=== PATIENT | male | born 1970 | race Caucasian/White ===

== ENCOUNTER 2017-08-27 09:10 | Day surgery (SDC) | payer OTHER ==
[2017-08-27] MEDS ORDERED: Propofol 10 mg/ml Inj (20 ML) ONE (11:31)
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
[2017-08-27] MEDS ORDERED: Lactated Ringer's 500 ML IV SCH (11:45)
[2017-08-27 12:45] VITALS: O2SAT 98
[2017-08-27 13:08] VITALS: BP 114/67; PULSE 74; RESP 13; TEMP 97.7
== END 2017-08-27 13:04 | disposition home or self-care (01) ==
LOC: C.ENDO 09:10
PROVIDERS: ATTEND Specialist
DX: K29.70 Gastritis, unspecified, without bleeding (principal); K29.80 Duodenitis without bleeding; B96.81 Helicobacter pylori [H. pylori] as the cause of diseases classified elsewhere
CPT/HCPCS: 43239; 88305; 88342; J2704; J7120

== ENCOUNTER 2017-08-29 07:54 | Day surgery (SDC) | payer OTHER ==
[2017-08-28 13:55] VITALS: BMI 32.4
--- NOTE | 2017-08-29 09:41 | CP.SDSHP ---
Same Day Surgery H & P - History Proposed Procedure: COLONSCOPY Pre-Op Diagnosis: SEE NOTES - Previous Medical/Surgical History Misc: Other Pain: 4.Moderate Pain - Allergies Allergies: Allergies No Known Allergies Allergy (Verified 08/28/17 13:54) - Physical Exam General Appearance: N Vital Signs: Vital Signs 08/29/17 08:33 Temperature 987.6 F H Pulse Rate 74 Respiratory 19 Rate Blood Pressure 133/70 O2 Sat by Pulse 97 Oximetry Mental Status: Alert & Oriented x3 Neuro: WNL Heart: WNL Lungs: WNL GI: WNL - {Optional Preform as Required} Breast: WNL Abdomen: Other Rectal: Other Integument: WNL : WNL Ortho: WNL ENT: WNL - Impression Pt. Evaluated Today:Candidate for Anesthesia & Procedure: Yes - Date & Time Time: 09:41 Short Stay Discharge - Short Stay Discharge Admitting Diagnosis/Reason for Visit: HEMORRHAGE OF ANUS AND RECTUM Disposition: HOME/ ROUTINE
[2017-08-29] MEDS ORDERED: Lactated Ringer's 1,000 ML IV ONE ×2 (09:42)
[2017-08-29] MEDS ORDERED: Belladonna-Phenobarbital PO STA (09:42)
[2017-08-29] MEDS ORDERED: Propofol 10 mg/ml Inj (20 ML) ONE (09:45)
[2017-08-29 10:37] VITALS: O2SAT 98
[2017-08-29 11:14] VITALS: BP 104/52; PULSE 59; RESP 16; TEMP 97.6
== END 2017-08-29 11:05 | disposition home or self-care (01) ==
LOC: C.ENDO 07:54
PROVIDERS: ATTEND Specialist
DX: K63.5 Polyp of colon (principal); K52.9 Noninfective gastroenteritis and colitis, unspecified; K64.8 Other hemorrhoids
CPT/HCPCS: 45380; 88305; J2704; J7120

== ENCOUNTER 2017-09-15 14:19 | Emergency (ER) | payer OTHER ==
[2017-09-15 14:29] VITALS: BMI 31.4
[2017-09-15 14:31] VITALS: RESP 18; O2SAT 97
[2017-09-15] MEDS ORDERED: Morphine 4 MG/ML VIAL ONE (14:56)
[2017-09-15 15:10] LABS: BASO # 0.1 K/uL (0.0-0.2); BASO % 0.6 % (0.0-2.0); EOS # 0.1 K/uL (0.0-0.7); EOS % 1.5 % (0.0-4.0); HEMOGLOBIN 15.4 g/dL (12.0-18.0); LYMPH # 1.7 K/uL (1.0-4.3); LYMPH % 17.7 % (20.0-40.0); MEAN CORPUSCULAR HEMOGLOBIN 31.4 pg (27.0-31.0); MEAN CORPUSCULAR HGB CONC 34.1 g/dL (33.0-37.0); MEAN PLATELET VOLUME 9.3 fL (7.2-11.7); MONO # 0.5 K/uL (0.0-0.8); MONO % 5.4 % (0.0-10.0); NEUT % 74.8 % (50.0-75.0); RBC 4.9 Mil/uL (4.40-5.90); RED CELL DISTRIBUTION WIDTH 13.4 % (11.5-14.5); WHITE BLOOD COUNT 9.3 K/uL (4.8-10.8)
[2017-09-15 15:26] LABS: URINE BILIRUBIN NEGATIVE (NEGATIVE); URINE BLOOD 2+ (NEGATIVE); URINE CALCIUM OXALATE CRYSTALS OCC /hpf (<OCC); URINE CLARITY Clear (Clear); URINE COLOR Yellow (YELLOW); URINE GLUCOSE (UA) NORMAL (Normal); URINE LEUKOCYTE ESTERASE NEG Leu/uL (Negative); URINE PROTEIN 1+ mg/dL (NEGATIVE); URINE UROBILINOGEN NORMAL mg/dL (0.2-1.0)
--- NOTE | 2017-09-15 15:32 | C.PDOC ---
History Of Present Illness 47yo male, with history of renal stones, presents to ER with complaints of right sided abdominal pain, intermittently present since yesterday. Patient reports associated nausea but denies any vomiting, testicular pain, dysuria, penile discharge, hematuria or fevers. He has no other medical complaints. Time Seen by Provider: 09/15/17 14:47 Chief Complaint (Nursing): Abdominal Pain History Per: Patient History/Exam Limitations: no limitations Onset/Duration Of Symptoms: Days (1) Current Symptoms Are (Timing): Still Present Location Of Pain/Discomfort: RUQ, RLQ Quality Of Discomfort: "Pain" Associated Symptoms: Nausea. denies: Fever, Vomiting Past Medical History Reviewed: Historical Data, Nursing Documentation, Vital Signs Vital Signs: Last Vital Signs Temp 97.9 F 09/15/17 16:30 Pulse 83 09/15/17 16:30 Resp 18 09/15/17 16:30 BP 124/72 09/15/17 16:30 Pulse Ox 97 09/15/17 16:30 - Medical History PMH: Gastritis, Kidney Stones Denies: Colonic Polyps, Fractures, Obstructive Bowel, Chronic Kidney Disease , Seizures, Sleep Apnea, TIA Surgical History: Appendectomy, Cholecystectomy, Endoscopy Family History: States: Unknown Family Hx - Social History Hx Tobacco Use: No Hx Alcohol Use: Yes Hx Substance Use: No - Immunization History Hx Tetanus Toxoid Vaccination: No Hx Influenza Vaccination: No Hx Pneumococcal Vaccination: No Review Of Systems Except As Marked, All Systems Reviewed And Found Negative. Constitutional: Negative for: Fever Gastrointestinal: Positive for: Nausea, Abdominal Pain. Negative for: Vomiting Genitourinary: Negative for: Hematuria Physical Exam - Physical Exam Appears: Non-toxic, Other (uncomfortable) Skin: Normal Color, Warm, Dry Head: Atraumatic, Normacephalic Eye(s): bilateral: Normal Inspection, EOMI Nose: Normal Oral Mucosa: Moist Neck: Normal ROM, Supple Chest: Symmetrical Cardiovascular: Rhythm Regular Respiratory: Normal Breath Sounds, No Accessory Muscle Use, Other (speaking full sentences) Gastrointestinal/Abdominal: Soft, Tenderness (right sided abdominal tenderness) Back: CVA Tenderness (right), No Vertebral Tenderness Neurological/Psych: Oriented x3, Normal Speech ED Course And Treatment - Laboratory Results Result Diagrams: 09/15/17 15:05 09/15/17 15:05 O2 Sat by Pulse Oximetry: 97 (RA) Pulse Ox Interpretation: Normal - CT Scan/US CT Abdomen/Pelvis Other Rad Studies (CT/US): Read By Radiologist, Radiology Report Reviewed CT/US Interpretation: PROCEDURE: CT Abdomen and Pelvis without Oral or IV contrast. HISTORY: abd pain. COMPARISON: CT abdomen and pelvis without contrast performed 06/13/15. TECHNIQUE: Contiguous axial images of the abdomen and pelvis. No oral or IV contrast administered. Coronal and Sagittal reformats generated and reviewed. Radiation dose: Total exam DLP = 906.99 mGy-cm. This CT exam was performed using one or more of the following dose reduction techniques: Automated exposure control, adjustment of the mA and/or kV according to patient size, and/or use of iterative reconstruction technique. FINDINGS: There is limited evaluation of the solid organs without the administration of IV contrast. LOWER THORAX: No visible consolidation, pleural effusion, or pneumothorax. LIVER: Unremarkable unenhanced appearance. GALLBLADDER AND BILE DUCTS: Suspect gallbladder sludge. PANCREAS: Unremarkable unenhanced appearance. SPLEEN: 9 mm probable splenule. Otherwise unremarkable unenhanced appearance. . ADRENALS: Unremarkable unenhanced appearance. KIDNEYS AND URETERS: 3 mm distal right ureteral calculus with proximal mild hydroureteronephrosis. Additional bilateral nonobstructing renal calculi measuring up to 6 mm on the left and 5 mm on the right. Faintly visualized 10 mm left upper pole renal hypodensity measures approximately 9 HU, possibly cyst. BLADDER: Decompressed urinary bladder appears otherwise unremarkable. REPRODUCTIVE: The prostate gland measures approximately 4.7 x 5.3 cm. APPENDIX: The appendix is not identified. No secondary signs of acute appendicitis identified. BOWEL: The stomach is nondistended. Lack of oral contrast limits evaluation for bowel pathology. The bowel loops appear within normal limits of caliber without evidence of intestinal obstruction. PERITONEUM: No significant free fluid. No definite free air. LYMPH NODES: No bulky lymphadenopathy identified. VASCULATURE: No aortic aneurysm. BONES: No acute osseous abnormality is detected. OTHER FINDINGS: None. IMPRESSION: 3 mm distal right ureteral calculus with proximal mild hydroureteronephrosis. Additional bilateral nonobstructing renal calculi measuring up to 6 mm on the left and 5 mm on the right. Faintly visualized 10 mm hypodense left upper pole renal lesion, possibly cyst. Suggest further evaluation with ultrasound if indicated. Enlarged prostate gland. Recommend correlation with PSA. Probable gallbladder sludge. Suggest right upper quadrant ultrasound if indicated. Additional findings as above. Progress Note: Labs and CT Abdomen/Pelvis ordered and reviewed. Patient given morphine, toradol and zofran with relief of symptoms. Results of CT scan discussed with patient and instructions given for further evaluation of prostate and galbladder. Patient given copies of studies today; also given instructions to return to ER if symptoms worsen or new symptoms arise. Case discussed with Dr Barksdale, agreed upon plan and discharge. Disposition - Disposition Referrals: Nigel Webster MD [Staff Provider] - Disposition: HOME/ ROUTINE Disposition Time: 16:04 Condition: STABLE Additional Instructions: You were evaluated today for your abdominal pain and diagnosed with a kidney stone. The medication you are prescribed will help your pain and to pass the stone. If the symptoms persist or worsen, return to ER right away. You were also given a copy of your CT scan and labs. Show your doctor these so they can evaluated your gall bladder and prostate further. Fuiste evaluado hoy para tu dolor abdominal y te diagnosticaron clculos renales. La medicacin que le prescriben ayudar a santillan dolor y a pasar la tae. Si los sntomas persisten o empeoran, regrese a ER de inmediato. Tambi n le dieron andreina copia de santillan tomografa computarizada y laboratorios. Mustrele esto a santillan mdico para que pueda evaluar santillan vescula biliar y prstata an ms. 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 - Scribe Statement The provider has reviewed the documentation as recorded by the Scribe (Brandi Rucker) Provider Attestation: All medical record entries made by the Scribe were at my direction and personally dictated by me. I have reviewed the chart and agree that the record accurately reflects my personal performance of the history, physical exam, medical decision making, and the department course for this patient. I have also personally directed, reviewed, and agree with the discharge instructions and disposition.
[2017-09-15 15:33] LABS: ALB/GLOB RATIO 1.3 (1.0-2.1); ALBUMIN 4.7 g/dL (3.5-5.0); ALT/SGPT 163 U/L (21-72); AST/SGOT 79 U/L (17-59); BLOOD UREA NITROGEN 12 mg/dL (9-20); GFR AFRICAN-AMERICAN > 60; GFR NON-AFRICAN AMERICAN > 60; LIPASE 56 U/L (23-300)
--- NOTE | 2017-09-15 15:58 | CT ---
PROCEDURE: CT Abdomen and Pelvis without Oral or IV contrast. HISTORY: abd pain COMPARISON: CT abdomen and pelvis without contrast performed 06/13/15 TECHNIQUE: Contiguous axial images of the abdomen and pelvis. No oral or IV contrast administered. Coronal and Sagittal reformats generated and reviewed. Radiation dose: Total exam DLP = 906.99 mGy-cm. This CT exam was performed using one or more of the following dose reduction techniques: Automated exposure control, adjustment of the mA and/or kV according to patient size, and/or use of iterative reconstruction technique. FINDINGS: There is limited evaluation of the solid organs without the administration of IV contrast. LOWER THORAX: No visible consolidation, pleural effusion, or pneumothorax. LIVER: Unremarkable unenhanced appearance. GALLBLADDER AND BILE DUCTS: Suspect gallbladder sludge. PANCREAS: Unremarkable unenhanced appearance. SPLEEN: 9 mm probable splenule. Otherwise unremarkable unenhanced appearance. . ADRENALS: Unremarkable unenhanced appearance. KIDNEYS AND URETERS: 3 mm distal right ureteral calculus with proximal mild hydroureteronephrosis. Additional bilateral nonobstructing renal calculi measuring up to 6 mm on the left and 5 mm on the right. Faintly visualized 10 mm left upper pole renal hypodensity measures approximately 9 HU, possibly cyst. BLADDER: Decompressed urinary bladder appears otherwise unremarkable. REPRODUCTIVE: The prostate gland measures approximately 4.7 x 5.3 cm. APPENDIX: The appendix is not identified. No secondary signs of acute appendicitis identified. BOWEL: The stomach is nondistended. Lack of oral contrast limits evaluation for bowel pathology. The bowel loops appear within normal limits of caliber without evidence of intestinal obstruction. PERITONEUM: No significant free fluid. No definite free air. LYMPH NODES: No bulky lymphadenopathy identified. VASCULATURE: No aortic aneurysm. BONES: No acute osseous abnormality is detected. OTHER FINDINGS: None. IMPRESSION: 3 mm distal right ureteral calculus with proximal mild hydroureteronephrosis. Additional bilateral nonobstructing renal calculi measuring up to 6 mm on the left and 5 mm on the right. Faintly visualized 10 mm hypodense left upper pole renal lesion, possibly cyst. Suggest further evaluation with ultrasound if indicated. Enlarged prostate gland. Recommend correlation with PSA. Probable gallbladder sludge. Suggest right upper quadrant ultrasound if indicated. Additional findings as above.
[2017-09-15 16:39] VITALS: BP 124/72; PULSE 83; TEMP 97.9
== END 2017-09-15 17:02 | disposition home or self-care (01) ==
LOC: C.ER 14:19
DX: N20.0 Calculus of kidney (principal)
CPT/HCPCS: 74176; 80053; 81001; 83690; 85025; 96374; 96375; 99284; J1885; J2270; J2405

== ENCOUNTER 2017-12-04 08:48 | Emergency (ER) | payer OTHER ==
[2017-12-04 08:48] VITALS: BMI 31.4
[2017-12-04 08:59] VITALS: TEMP 98.3; O2SAT 97
[2017-12-04] MEDS ORDERED: Sodium Chloride 0.9% 1,000 ML IV ONE (09:37)
[2017-12-04] MEDS ORDERED: Sodium Chloride 0.9% 1,000 ML ONE (09:43)
[2017-12-04 10:04] LABS: BASO % 0.3 % (0.0-2.0); EOS # 0.2 K/uL (0.0-0.7); EOS % 2.7 % (0.0-4.0); HEMOGLOBIN 14.4 g/dL (12.0-18.0); LYMPH # 1.4 K/uL (1.0-4.3); LYMPH % 24.5 % (20.0-40.0); MEAN CELL VOLUME 91.7 fL (80.0-94.0); MEAN CORPUSCULAR HEMOGLOBIN 31.4 pg (27.0-31.0); MEAN CORPUSCULAR HGB CONC 34.3 g/dL (33.0-37.0); MONO # 0.3 K/uL (0.0-0.8); MONO % 4.9 % (0.0-10.0); NEUT # 3.9 K/uL (1.8-7.0); NEUT % 67.6 % (50.0-75.0); NRBC % 0.1 % (0.0-2.0); RBC 4.58 Mil/uL (4.40-5.90); RED CELL DISTRIBUTION WIDTH 13.7 % (11.5-14.5); WHITE BLOOD COUNT 5.7 K/uL (4.8-10.8)
[2017-12-04 10:05] LABS: URINE BILIRUBIN NEGATIVE (NEGATIVE); URINE BLOOD 2+ (NEGATIVE); URINE CLARITY Clear (Clear); URINE COLOR Colorless (YELLOW); URINE GLUCOSE (UA) NORMAL (Normal); URINE LEUKOCYTE ESTERASE NEG Leu/uL (Negative); URINE PROTEIN NEGATIVE (NEGATIVE); URINE UROBILINOGEN NORMAL mg/dL (0.2-1.0)
--- NOTE | 2017-12-04 10:16 | C.PDOC ---
History Of Present Illness Patient is a 47 y/o male, with a Hx of kidney stones, who presents to the ED with a complaint of lower abdominal pain for the last 15 days. Patient reports pain is localized to suprapubic region and notes seeing some blood in urine. No other physical complaints at this time. Time Seen by Provider: 12/04/17 09:04 Chief Complaint (Nursing): Male Genitourinary History Per: Patient History/Exam Limitations: no limitations Onset/Duration Of Symptoms: Days (15) Current Symptoms Are (Timing): Still Present Associated Symptoms: Urinary Symptoms (hematuria) Recent travel outside of the [place]: No Past Medical History Reviewed: Historical Data, Nursing Documentation, Vital Signs Vital Signs: Last Vital Signs Temp 98.3 F 12/04/17 08:58 Pulse 74 12/04/17 11:31 Resp 18 12/04/17 12:30 BP 112/69 12/04/17 11:31 Pulse Ox 97 12/04/17 12:13 - Medical History PMH: Gastritis, Kidney Stones Denies: Colonic Polyps, Fractures, Obstructive Bowel, Chronic Kidney Disease , Seizures, Sleep Apnea, TIA Surgical History: Appendectomy, Cholecystectomy, Endoscopy Family History: States: No Known Family Hx - Social History Hx Tobacco Use: No Hx Alcohol Use: Yes Hx Substance Use: No - Immunization History Hx Tetanus Toxoid Vaccination: No Hx Influenza Vaccination: No Hx Pneumococcal Vaccination: No Review Of Systems Constitutional: Negative for: Fever, Chills Gastrointestinal: Positive for: Abdominal Pain (suprapubic). Negative for: Nausea, Vomiting Genitourinary: Positive for: Hematuria Physical Exam - Physical Exam Appears: Well, Non-toxic, No Acute Distress Skin: Normal Color, Warm, Dry Head: Atraumatic, Normacephalic Oral Mucosa: Moist Chest: Symmetrical Cardiovascular: Rhythm Regular, No Murmur Respiratory: Normal Breath Sounds, No Rales, No Rhonchi, No Wheezing Gastrointestinal/Abdominal: Soft, Tenderness (suprapubic), No Guarding, No Rebound Neurological/Psych: Oriented x3, Normal Speech, Normal Cognition ED Course And Treatment - Laboratory Results Result Diagrams: 12/04/17 09:54 12/04/17 09:54 Lab Interpretation: No Acute Changes O2 Sat by Pulse Oximetry: 97 - CT Scan/US CT abdomen/pelvis Other Rad Studies (CT/US): Interpreted By Me, Read By Radiologist CT/US Interpretation: PROCEDURE: CT Abdomen and Pelvis without intravenous contrast. HISTORY: Pain. COMPARISON: None. TECHNIQUE: Without contrast.. Contrast dose: 0. Radiation dose: Total exam DLP = 746.54 mGy-cm. This CT exam was performed using one or more of the following dose reduction techniques : Automated exposure control, adjustment of the mA and/or kV according to patient size, and/or use of iterative reconstruction technique. FINDINGS: LOWER THORAX: Unremarkable. LIVER: Normal size, contour. Diffusely diminished attenuation consistent with fatty infiltration. No mass. No biliary ductal dilatation. GALLBLADDER AND BILE DUCTS: Unremarkable. PANCREAS: Unremarkable. No gross lesion or ductal dilatation. SPLEEN: Unremarkable. ADRENALS: Unremarkable. No mass. KIDNEYS AND URETERS: Mild left hydronephrosis. Obstructing calculus junction of the proximal and middle 3rd of the left ureter, approximately 9 mm in greatest dimension. Periureteric stranding is noted including along the ureter immediately distal to this calculus, uncertain significance. No right ureteral calculus. Bilateral renal calculi. 3 mm lower pole left kidney. 8 mm upper pole left kidney. 8 mm upper pole right kidney. 2 mm lower pole right kidney. No renal mass. No perinephric fluid. VASCULATURE: Unremarkable. No aortic aneurysm. BOWEL: Scattered colonic diverticulae. No bowel obstruction. APPENDIX: Not identified. No secondary findings. PERITONEUM: Unremarkable. No free fluid. No free air. LYMPH NODES: Unremarkable. No enlarged lymph nodes. BLADDER: Unremarkable. REPRODUCTIVE: Normal prostate. BONES: No acute fracture. OTHER FINDINGS: None. IMPRESSION: Obstructing proximal left ureteral calculus , 9 mm. Bilateral nonobstructing renal calculi. No other significant abnormality. Progress Note: CT abdomen/pelvis ordered. Toradol and IV fluids administered. on re-evauation abdomen soft non-tender Reassessment Condition: Improved Disposition Counseled Patient/Family Regarding: Studies Performed, Diagnosis, Need For Followup, Rx Given - Disposition Referrals: Ryan Martinez Jr., MD [Staff Provider] - Disposition: HOME/ ROUTINE Disposition Time: 12:15 Condition: STABLE Additional Instructions: Follow up with PMD and urology for further evaluation Prescriptions: Naproxen [Naprosyn] 1 tab PO BID PRN #25 tab PRN Reason: Pain Tamsulosin HCl [Flomax] 0.4 mg PO DAILY #7 cap.er.24h Instructions: Renal Colic Forms: [employer] (Japanese) - POA Present On Arrival: None - Clinical Impression Clinical Impression: Renal colic - Scribe Statement The provider has reviewed the documentation as recorded by the Scribe Tova Obregon All medical record entries made by the Scribe were at my direction and personally dictated by me. I have reviewed the chart and agree that the record accurately reflects my personal performance of the history, physical exam, medical decision making, and the department course for this patient. I have also personally directed, reviewed, and agree with the discharge instructions and disposition.
[2017-12-04 10:17] LABS: ALB/GLOB RATIO 1.3 (1.0-2.1); ALBUMIN 4.3 g/dL (3.5-5.0); ALT/SGPT 156 U/L (21-72); AST/SGOT 71 U/L (17-59); BLOOD UREA NITROGEN 12 mg/dL (9-20); CALCIUM 11.3 mg/dl (8.6-10.4); GFR AFRICAN-AMERICAN > 60; GFR NON-AFRICAN AMERICAN > 60; LIPASE 36 U/L (23-300)
--- NOTE | 2017-12-04 11:28 | CT ---
PROCEDURE: CT Abdomen and Pelvis without intravenous contrast HISTORY: Pain COMPARISON: None. TECHNIQUE: Without contrast.. Contrast dose: 0 Radiation dose: Total exam DLP = 746.54 mGy-cm. This CT exam was performed using one or more of the following dose reduction techniques: Automated exposure control, adjustment of the mA and/or kV according to patient size, and/or use of iterative reconstruction technique. FINDINGS: LOWER THORAX: Unremarkable. LIVER: Normal size, contour. Diffusely diminished attenuation consistent with fatty infiltration. No mass. No biliary ductal dilatation. GALLBLADDER AND BILE DUCTS: Unremarkable. PANCREAS: Unremarkable. No gross lesion or ductal dilatation. SPLEEN: Unremarkable. ADRENALS: Unremarkable. No mass. KIDNEYS AND URETERS: Mild left hydronephrosis. Obstructing calculus junction of the proximal and middle 3rd of the left ureter, approximately 9 mm in greatest dimension. Periureteric stranding is noted including along the ureter immediately distal to this calculus, uncertain significance. No right ureteral calculus. Bilateral renal calculi. 3 mm lower pole left kidney. 8 mm upper pole left kidney. 8 mm upper pole right kidney. 2 mm lower pole right kidney. No renal mass. No perinephric fluid. VASCULATURE: Unremarkable. No aortic aneurysm. BOWEL: Scattered colonic diverticulae. No bowel obstruction. APPENDIX: Not identified. No secondary findings. PERITONEUM: Unremarkable. No free fluid. No free air. LYMPH NODES: Unremarkable. No enlarged lymph nodes. BLADDER: Unremarkable. REPRODUCTIVE: Normal prostate BONES: No acute fracture. OTHER FINDINGS: None. IMPRESSION: Obstructing proximal left ureteral calculus, 9 mm. Bilateral nonobstructing renal calculi. No other significant abnormality. This is
[2017-12-04 11:32] VITALS: BP 112/69; PULSE 74; RESP 18
== END 2017-12-04 12:31 | disposition home or self-care (01) ==
LOC: C.ER 08:48
DX: N13.2 Hydronephrosis with renal and ureteral calculous obstruction (principal)
CPT/HCPCS: 74176; 80053; 81001; 83690; 85025; 96361; 96374; 99285; J1885; J7030

== ENCOUNTER 2017-12-07 12:22 | Inpatient (IN) | payer OTHER ==
[2017-12-07 12:22] VITALS: BMI 31.4
[2017-12-07] MEDS ORDERED: Sodium Chloride 0.9% 1,000 ML IV ONE (13:24)
[2017-12-07] MEDS ORDERED: Sodium Chloride 0.9% 1,000 ML ONE (13:47)
[2017-12-07 14:09] LABS: BASO # 0.1 K/uL (0.0-0.2); BASO % 0.8 % (0.0-2.0); EOS # 0.1 K/uL (0.0-0.7); EOS % 0.9 % (0.0-4.0); HEMOGLOBIN 14.6 g/dL (12.0-18.0); LYMPH # 1.9 K/uL (1.0-4.3); LYMPH % 16.1 % (20.0-40.0); MEAN CELL VOLUME 90.9 fL (80.0-94.0); MEAN CORPUSCULAR HEMOGLOBIN 31.4 pg (27.0-31.0); MEAN CORPUSCULAR HGB CONC 34.5 g/dL (33.0-37.0); MEAN PLATELET VOLUME 8.8 fL (7.2-11.7); MONO # 0.6 K/uL (0.0-0.8); MONO % 5.5 % (0.0-10.0); NEUT # 9.1 K/uL (1.8-7.0); NEUT % 76.7 % (50.0-75.0); RBC 4.65 Mil/uL (4.40-5.90); RED CELL DISTRIBUTION WIDTH 13.6 % (11.5-14.5); WHITE BLOOD COUNT 11.8 K/uL (4.8-10.8)
[2017-12-07 14:13] LABS: URINE BILIRUBIN NEGATIVE (NEGATIVE); URINE BLOOD 3+ (NEGATIVE); URINE CLARITY Clear (Clear); URINE COLOR Straw (YELLOW); URINE GLUCOSE (UA) NORMAL (Normal); URINE LEUKOCYTE ESTERASE NEG Leu/uL (Negative); URINE PROTEIN NEGATIVE (NEGATIVE); URINE UROBILINOGEN NORMAL mg/dL (0.2-1.0)
[2017-12-07 14:20] LABS: ALB/GLOB RATIO 1.2 (1.0-2.1); ALBUMIN 4.6 g/dL (3.5-5.0); ALT/SGPT 164 U/L (21-72); AST/SGOT 60 U/L (17-59); BLOOD UREA NITROGEN 15 mg/dL (9-20); CALCIUM 11.1 mg/dl (8.6-10.4); GFR AFRICAN-AMERICAN > 60; GFR NON-AFRICAN AMERICAN > 60; LIPASE 36 U/L (23-300)
--- NOTE | 2017-12-07 14:23 | RAD ---
Abdomen three views History: Renal calculus. Comparison: CT scan dated 12/04/2017 Findings: Again identified are punctate calculi projecting over the bilateral renal fossa. In addition, there appears to be an 8 millimeter radiopaque calculus projecting at the lateral aspect of the L4 vertebral body which in correlation with the prior CT scan may represent an obstructing left renal calculus. Calcifications within the pelvis may represent calcified phleboliths. Degenerative changes in the spine and hips. Moderate fecal retention in the colon. Impression: Again identified are punctate calculi projecting over the bilateral renal fossa. In addition, there appears to be an 8 millimeter radiopaque calculus projecting at the lateral aspect of the L4 vertebral body which in correlation with the prior CT scan may represent an obstructing left renal calculus. Calcifications within the pelvis may represent calcified phleboliths. Degenerative changes in the spine and hips. Moderate fecal retention in the colon. Correlation with CT scan may be helpful if clinically indicated.
--- NOTE | 2017-12-07 14:40 | C.PDOC ---
History Of Present Illness 47 y/o male presents to the ED complaining of lower abdominal pain, worsening for the past 2 days. Associated with nausea and vomiting. Patient was seen here on 12/04 and diagnosed with a 9 mm left proximal ureteral stone. States pain is worsening, and now radiating to the left testicle. No fevers or chills. Time Seen by Provider: 12/07/17 13:12 Chief Complaint (Nursing): Male Genitourinary History Per: Patient History/Exam Limitations: no limitations Onset/Duration Of Symptoms: Days Current Symptoms Are (Timing): Worse Past Medical History Reviewed: Historical Data, Nursing Documentation, Vital Signs Vital Signs: Last Vital Signs Temp 98.7 F 12/08/17 23:55 Pulse 97 H 12/08/17 23:55 Resp 20 12/08/17 23:55 BP 123/81 12/08/17 23:55 Pulse Ox 96 12/08/17 23:55 - Medical History PMH: Gastritis, Kidney Stones Denies: Colonic Polyps, Fractures, Obstructive Bowel, Chronic Kidney Disease , Seizures, Sleep Apnea, TIA Surgical History: Appendectomy, Cholecystectomy, Endoscopy Family History: States: Unknown Family Hx - Social History Hx Tobacco Use: No Hx Alcohol Use: Yes Hx Substance Use: No - Immunization History Hx Tetanus Toxoid Vaccination: No Hx Influenza Vaccination: No Hx Pneumococcal Vaccination: No Review Of Systems Except As Marked, All Systems Reviewed And Found Negative. Gastrointestinal: Positive for: Nausea, Vomiting, Abdominal Pain Physical Exam - Physical Exam Appears: Non-toxic, In Acute Distress (moderate distress secondary to pain) Skin: Normal Color, Warm, Dry Head: Atraumatic, Normacephalic Eye(s): bilateral: Normal Inspection, PERRL, EOMI Nose: Normal Oral Mucosa: Moist Neck: Normal ROM, Supple Chest: Symmetrical Cardiovascular: Rhythm Regular, No Murmur Respiratory: Normal Breath Sounds, No Rales, No Rhonchi, No Wheezing Gastrointestinal/Abdominal: Bowel Sounds (positive), Soft, Tenderness (to left lower quadrant), No Guarding, No Rebound Back: Normal Inspection, No Vertebral Tenderness Male Genital: Normal Inspection (uncircumcised male, both testes descended), No Other (testicular mass) Extremity: Bilateral: Atraumatic, Normal Color And Temperature, Normal ROM Pulses: Left Dorsalis Pedis: Normal, Right Dorsalis Pedis: Normal Neurological/Psych: Oriented x3, Normal Speech ED Course And Treatment - Laboratory Results Result Diagrams: 12/07/17 14:01 12/07/17 14:01 O2 Sat by Pulse Oximetry: 95 (RA) Pulse Ox Interpretation: Normal - Other Rad abd flat plate X-Ray: Viewed By Me, Read By Radiologist Interpretation: Accession No. : [id number]. Patient Name / ID : HENRIQUE CERVANTES / [id number]. Exam Date : 12/07/2017 13:31:42 ( Approved ). Study Comment : Sex / Age : M / 47Y. Creator : Tony Stevens MD. Dictator : Tony Stevens MD. Scheduler Conveyor : Monument Letterer : Tony Stevens MD. Approver2 : Report Date : 12/07/2017 14:22:07. My Comment : . Abdomen three views. History: Renal calculus. Comparison: CT scan dated 2017. Findings: Again identified are punctate calculi projecting over the bilateral renal fossa. In addition, there appears to be an 8 millimeter radiopaque calculus projecting at the lateral aspect of the L4 vertebral body which in correlation with the prior CT scan may represent an obstructing left renal calculus. Calcifications within the pelvis may represent calcified phleboliths. Degenerative changes in the spine and hips. Moderate fecal retention in the colon. Impression: Again identified are punctate calculi projecting over the bilateral renal fossa. In addition, there appears to be an 8 millimeter radiopaque calculus projecting at the lateral aspect of the L4 vertebral body which in correlation with the prior CT scan may represent an obstructing left renal calculus. Calcifications within the pelvis may represent calcified phleboliths. Degenerative changes in the spine and hips. Moderate fecal retention in the colon. Correlation with CT scan may be helpful if clinically indicated. Medical Decision Making Medical Decision Making: Impression: 9 mm kidney stone, failing outpatient treatment Initial Plan: --CMP --CBC --Lipase --UA --Urine culture --X-ray Abd (flat plate) --IV fluids --Morphine 2 mg IV --Pepcid 20 mg IV --Reglan 10 mg IV 2:32pm Paged Dr. Sunshine, medicine on-call, and left voicemail. 3:52pm Received call from Dr. Sunshine, who noted Dr. Kanu Douglass is covering her today. 3:55pm Discussed case w/ Dr. Douglass, who accepts patient for admission for left renal stone. Disposition Discussed With : Kanu Douglass Counseled Patient/Family Regarding: Studies Performed, Diagnosis - Disposition Disposition: HOSPITALIZED Disposition Time: 15:56 Condition: FAIR - POA Present On Arrival: None - Clinical Impression Clinical Impression: Renal colic - Scribe Statement The provider has reviewed the documentation as recorded by the Scribe (Gris Arauz) Provider Attestation: All medical record entries made by the Scribe were at my direction and personally dictated by me. I have reviewed the chart and agree that the record accurately reflects my personal performance of the history, physical exam, medical decision making, and the department course for this patient. I have also personally directed, reviewed, and agree with the discharge instructions and disposition.
[2017-12-07] MEDS: Sodium Chloride 0.9% 1,000 ML IV SCH (19:08)
[2017-12-07] MEDS: (Novolog) Insulin Aspart, Recombinant 100 u/ml 10 ml vial SC SCH (22:15)
[2017-12-07] MEDS ORDERED: Morphine 4 MG/ML VIAL IV ONE (23:04)
[2017-12-08] MEDS: Sodium Chloride 0.9% 1,000 ML IV SCH ×4 (03:35→21:39)
[2017-12-08] MEDS: (Novolog) Insulin Aspart, Recombinant 100 u/ml 10 ml vial SC SCH ×4 (07:58→21:52)
[2017-12-08] MEDS ORDERED: Pneumococcal 23-Valent Vaccine IM ONE (12:00)
[2017-12-08 16:16] VITALS: RESP 20
[2017-12-09] MEDS: Sodium Chloride 0.9% 1,000 ML IV SCH ×6 (02:59→23:53)
--- NOTE | 2017-12-09 05:02 | CP.PCM.HP ---
History of Present Illness - History of Present Illness History of Present Illness: CC: Left flank and LLQ pain HPI: This is a 47 year old male with h/o prior kidney stones and prior hospitalizations came with c/o left flank pain and LLQ pain, pain is sharp and not changed on exertion,worsening for the past 2 days. Associated with nausea and vomiting. Patient was seen here on 12/04 and diagnosed with a 9 mm left proximal ureteral stone. States pain is worsening, and now radiating to the left testicle. No fevers or chills. he denies any cough, sore thraot, bowel problems Present on Admission - Present on Admission Any Indicators Present on Admission: Yes Review of Systems - Review of Systems Systems not reviewed;Unavailable: Acuity of Condition - Constitutional Constitutional: Fatigue, Lethargy, Weakness - EENT Eyes: absent: As Per HPI, Blind Spots, Blurred Vision, Change in Vision, Decreased Night Vision, Diplopia, Discharge, Dry Eye, Exophthalmos, Floaters, Irritation, Itchy Eyes, Loss of Peripheral Vision, Pain, Photophobia, Requires Corrective Lenses, Sees Flashes, Spots in Vision, Tunnel Vision, Other Visual Disturbances, Loss of Vision, Other Nose/Mouth/Throat: absent: As Per HPI, Epistaxis, Nasal Congestion, Nasal Discharge, Nasal Obstruction, Nasal Trauma, Nose Pain, Post Nasal Drip, Sinus Pain, Sinus Pressure, Bleeding Gums, Change in Voice, Dental Pain, Dry Mouth, Dysphagia, Halitosis, Hoarsness, Lip Swelling, Mouth Lesions, Mouth Pain, Odynophagia, Sore Throat, Throat Swelling, Tongue Swelling, Facial Pain, Neck Pain, Neck Mass, Other - Cardiovascular Cardiovascular: absent: As Per HPI, Acrocyanosis, Chest Pain, Chest Pain at Rest , Chest Pain with Activity, Claudication, Diaphoresis, Dyspnea, Dyspnea on Exertion, Edema, Irregular Heart Rhythm, Pain Radiating to Arm/Neck/Jaw, Leg Edema, Leg Ulcers, Lightheadedness, Orthopnea, Palpitations, Paroxysmal Nocturnal Dyspnea, Pedal Edema, Radiating Pain, Rapid Heart Rate, Slow Heart Rate, Syncope, Other - Respiratory Respiratory: absent: As Per HPI, Cough, Dyspnea, Hemoptysis, Dyspnea on Exertion , Wheezing, Snoring, Stridor, Pain on Inspiration, Chest Congestion, Excessive Mucous Production, Change in Mucous Color, Pain with Coughing, Other - Gastrointestinal Gastrointestinal: Abdominal Pain, Nausea - Genitourinary Genitourinary: Flank Pain Past Patient History - Past Medical History & Family History Past Medical History?: No - Past Social History Smoking Status: Never Smoked - CARDIAC Hx Cardiac Disorders: No Hx Heart Attack: No - PULMONARY Hx Respiratory Disorders: Yes Hx Asthma: Yes Hx Sleep Apnea: No - NEUROLOGICAL Hx Neurological Disorder: No Hx Seizures: No Hx Transient Ischemic Attacks (TIA): No - HEENT Hx HEENT Problems: No - RENAL Hx Chronic Kidney Disease: No Hx Kidney Stones: Yes - ENDOCRINE/METABOLIC Hx Endocrine Disorders: Yes Hx Diabetes Mellitus Type 2: Yes - HEMATOLOGICAL/ONCOLOGICAL Hx Blood Disorders: No Hx Blood Transfusions: No - INTEGUMENTARY Hx Dermatological Problems: No - MUSCULOSKELETAL/RHEUMATOLOGICAL Hx Falls: No Hx Fractures: No - GASTROINTESTINAL Hx Gastritis: Yes - GENITOURINARY/GYNECOLOGICAL Hx Genitourinary Disorders: No - PSYCHIATRIC Hx Depression: Yes Hx Substance Use: No - SURGICAL HISTORY Hx Appendectomy: Yes Hx Cholecystectomy: Yes - ANESTHESIA Hx Anesthesia: Yes Hx Anesthesia Reactions: No Hx Malignant Hyperthermia: No Meds Allergies/Adverse Reactions: Allergies Allergy/AdvReac Type Severity Reaction Status Date / Time No Known Allergies Allergy Verified 12/07/17 12:31 Physical Exam - Constitutional Appears: No Acute Distress - Head Exam Head Exam: ATRAUMATIC, NORMAL INSPECTION, NORMOCEPHALIC - Eye Exam Eye Exam: EOMI, Normal appearance, PERRL Pupil Exam: NORMAL ACCOMODATION, PERRL - Respiratory Exam Respiratory Exam: Clear to Auscultation Bilateral, NORMAL BREATHING PATTERN - Cardiovascular Exam Cardiovascular Exam: REGULAR RHYTHM - GI/Abdominal Exam GI & Abdominal Exam: Normal Bowel Sounds, Tenderness - Rectal Exam Rectal Exam: Deferred - Extremities Exam Extremities exam: Positive for: normal inspection - Back Exam Back exam: CVA tenderness (L) Additional comments: kidneys are not palpable Results - Vital Signs Recent Vital Signs: Last Vital Signs Temp 98.7 F 12/08/17 23:55 Pulse 97 H 12/08/17 23:55 Resp 20 12/08/17 23:55 BP 123/81 12/08/17 23:55 Pulse Ox 96 12/08/17 23:55 - Labs Result Diagrams: 12/07/17 14:01 12/07/17 14:01 Labs: Laboratory Results - last 24 hr 0612/08/17 12/08/17 06:30 11:49 16:55 POC Glucose (mg/dL) 102 102 109 12/08/17 21:07 POC Glucose (mg/dL) 108 Assessment & Plan (1) Dehydration Status: Acute (2) Hydronephrosis Status: Acute (3) Nephrolithiasis Status: Acute (4) Renal colic Status: Acute
[2017-12-09] MEDS: (Novolog) Insulin Aspart, Recombinant 100 u/ml 10 ml vial SC SCH ×4 (07:51→21:54)
[2017-12-10 00:59] VITALS: PULSE 78; O2SAT 96
[2017-12-10] MEDS: Sodium Chloride 0.9% 1,000 ML IV SCH (06:28)
[2017-12-10 07:55] VITALS: BP 121/79; TEMP 97.9
[2017-12-10 08:05] LABS: BASO % 0.4 % (0.0-2.0); EOS # 0.3 K/uL (0.0-0.7); EOS % 5.7 % (0.0-4.0); LYMPH # 1.6 K/uL (1.0-4.3); LYMPH % 33.9 % (20.0-40.0); MEAN CELL VOLUME 91.5 fL (80.0-94.0); MEAN CORPUSCULAR HEMOGLOBIN 31.7 pg (27.0-31.0); MEAN CORPUSCULAR HGB CONC 34.7 g/dL (33.0-37.0); MEAN PLATELET VOLUME 8.6 fL (7.2-11.7); MONO # 0.2 K/uL (0.0-0.8); NEUT # 2.6 K/uL (1.8-7.0); NRBC % 0.2 % (0.0-2.0); RBC 4.42 Mil/uL (4.40-5.90); RED CELL DISTRIBUTION WIDTH 13.4 % (11.5-14.5)
[2017-12-10 08:06] LABS: WHITE BLOOD COUNT 4.7 K/uL (4.8-10.8)
[2017-12-10 08:20] LABS: BLOOD UREA NITROGEN 12 mg/dL (9-20); CALCIUM 11.4 mg/dl (8.6-10.4); GFR AFRICAN-AMERICAN > 60; GFR NON-AFRICAN AMERICAN > 60
[2017-12-10] MEDS: (Novolog) Insulin Aspart, Recombinant 100 u/ml 10 ml vial SC SCH (08:24)
--- NOTE | 2017-12-10 09:06 | PCM.URO ---
Urology Progress Note - Subjective Abdominal Pain: Yes - Objective Lab Results Last 24 Hours: Laboratory Results - last 24 hr 12/09/17 12/09/17 12/09/17 11:54 16:53 21:05 WBC RBC Hgb Hct MCV MCH MCHC RDW Plt Count MPV Neut % (Auto) Lymph % (Auto) Bell % (Auto) Eos % (Auto) Baso % (Auto) Neut # (Auto) Lymph # (Auto) Bell # (Auto) Eos # (Auto) Baso # (Auto) Sodium Potassium Chloride Carbon Dioxide Anion Gap BUN Creatinine Est GFR ( Amer) Est GFR (Non-Af Amer) POC Glucose (mg/dL) 99 105 111 H Random Glucose Calcium 12/10/17 12/10/17 12/10/17 06:02 07:54 07:54 WBC 4.7 L D RBC 4.42 Hgb 14.0 Hct 40.4 MCV 91.5 MCH 31.7 H MCHC 34.7 RDW 13.4 Plt Count 230 MPV 8.6 Neut % (Auto) 55.0 Lymph % (Auto) 33.9 Bell % (Auto) 5.0 Eos % (Auto) 5.7 H Baso % (Auto) 0.4 Neut # (Auto) 2.6 Lymph # (Auto) 1.6 Bell # (Auto) 0.2 Eos # (Auto) 0.3 Baso # (Auto) 0.0 Sodium 143 Potassium 4.2 Chloride 107 Carbon Dioxide 25 Anion Gap 14 BUN 12 Creatinine 0.9 Est GFR ( Amer) > 60 Est GFR (Non-Af Amer) > 60 POC Glucose (mg/dL) 99 Random Glucose 107 Calcium 11.4 H Intake & Output: Intake & Output 12/09/17 12/10/17 12/10/17 18:59 06:59 18:59 Intake Total 3055 Balance 3055 Intake: Intake, IV Amount 2400 Right Antecubital 2400 Oral 655 Other: # Voids Urine, Voided 2 # Bowel Movements 0 Vital Signs: Vital Signs - 24 hr 12/09/17 12/09/17 12/10/17 15:00 23:50 07:30 Temperature 98 F 98.1 F 97.9 F Pulse Rate 74 78 78 Respiratory 20 20 20 Rate Blood Pressure 123/79 126/82 121/79 O2 Sat by Pulse 95 96 96 Oximetry - Plan See Orders: Yes (pt is clear for discharge and he will treated with eswl at the [facility])
--- NOTE | 2017-12-10 10:51 | CP.PCM.PN ---
Subjective - Date & Time of Evaluation Date of Evaluation: 12/10/17 Time of Evaluation: 10:49 - Subjective Subjective: PT SEEN THIS MORNING BY DR. SANTILLAN AND RECOMMENDED FOR PT TO BE D/C FROM HOSPITAL TODAY AND GO TO [facility] IN [place] FOR PROCEDURE WITH DR. SANTILLAN THIS AFTERNOON AT 1:00 PM. PT NPO. OK TO D/C PER DR. HERNANDEZ. PT TO CONTINUE HOME MEDS USUAL. FURTHER RECOMMENDATIONS PER DR. SANTILLAN POST- PROCEDURE. NO FURTHER ORDERS. -FOLLOW UP WITH DR. SANTILLAN AT THE [facility] IN [place] TODAY AT 1:00 PM. -CONTINUE HOME MEDICATIONS USUAL. -FOR ANY FURTHER QUESTIONS, CONTACT DR. HERNANDEZ OR DR. SANTILLAN. Objective - Vital Signs/Intake and Output Vital Signs (last 24 hours): Temp Pulse Resp BP Pulse Ox 97.9 F 78 20 121/79 96 12/10/17 07:30 12/10/17 07:30 12/10/17 07:30 12/10/17 07:30 12/10/17 07:30 Intake and Output: 12/10/17 12/10/17 06:59 18:59 Intake Total 3055 Balance 3055 - Medications Medications: Current Medications Heparin Sodium (Porcine) (Heparin) 5,000 units SC Q8 [facility] Last Admin: 12/10/17 05:47 Dose: 5,000 units Sodium Chloride (Sodium Chloride 0.9%) 1,000 mls @ 150 mls/hr IV .[id number] [facility] Last Admin: 12/10/17 06:28 Dose: 150 mls/hr Insulin Aspart (Novolog) 0 unit SC ACHS [facility] PRN Reason: Protocol Last Admin: 12/10/17 08:24 Dose: Not Given Tamsulosin HCl (Flomax) 0.4 mg PO DAILY [facility] Last Admin: 12/09/17 09:35 Dose: 0.4 mg - Labs Labs: 12/10/17 07:54 12/10/17 07:54
--- NOTE | 2017-12-11 09:08 | CP.PCM.PN ---
Subjective - Date & Time of Evaluation Date of Evaluation: 12/09/17 Time of Evaluation: 19:00 - Subjective Subjective: Pt seen and examined, is also seen by urology, no pain now Objective - Vital Signs/Intake and Output Vital Signs (last 24 hours): Temp Pulse Resp BP Pulse Ox 97.9 F 78 20 121/79 96 12/10/17 07:30 12/10/17 07:30 12/10/17 07:30 12/10/17 07:30 12/10/17 07:30 - Labs Labs: 12/10/17 07:54 12/10/17 07:54 - Constitutional Appears: No Acute Distress - Head Exam Head Exam: ATRAUMATIC, NORMAL INSPECTION, NORMOCEPHALIC - Neck Exam Neck Exam: Full ROM, Normal Inspection. absent: Lymphadenopathy - Respiratory Exam Respiratory Exam: Clear to Ausculation Bilateral, NORMAL BREATHING PATTERN - Cardiovascular Exam Cardiovascular Exam: REGULAR RHYTHM, +S1, +S2. absent: Murmur - GI/Abdominal Exam GI & Abdominal Exam: Soft, Normal Bowel Sounds. absent: Tenderness - Rectal Exam Rectal Exam: Deferred Assessment and Plan (1) Dehydration Status: Acute (2) Hydronephrosis Status: Acute (3) Nephrolithiasis Status: Acute (4) Renal colic Status: Acute
--- NOTE | 2017-12-11 09:10 | CP.PCM.DIS ---
Provider - Provider Date of Admission: 12/07/17 15:17 Attending physician: Kanu Douglass MD Time Spent in preparation of Discharge (in minutes): 45 Diagnosis - Discharge Diagnosis (1) Dehydration Status: Acute (2) Hydronephrosis Status: Acute (3) Nephrolithiasis Status: Acute (4) Renal colic Status: Acute Hospital Course - Lab Results Lab Results: Micro Results 12/07/17 14:01 Urine Urine Culture - Final No Growth (<1,000 CFU/ML) Most Recent Lab Values WBC 4.7 K/uL (4.8-10.8) L D 12/10/17 07:54 RBC 4.42 Mil/uL (4.40-5.90) 12/10/17 07:54 Hgb 14.0 g/dL (12.0-18.0) 12/10/17 07:54 Hct 40.4 % (35.0-51.0) 12/10/17 07:54 MCV 91.5 fL (80.0-94.0) 12/10/17 07:54 MCH 31.7 pg (27.0-31.0) H 12/10/17 07:54 MCHC 34.7 g/dL (33.0-37.0) 12/10/17 07:54 RDW 13.4 % (11.5-14.5) 12/10/17 07:54 Plt Count 230 K/uL (130-400) 12/10/17 07:54 MPV 8.6 fL (7.2-11.7) 12/10/17 07:54 Neut % (Auto) 55.0 % (50.0-75.0) 12/10/17 07:54 Lymph % (Auto) 33.9 % (20.0-40.0) 12/10/17 07:54 [place] % (Auto) 5.0 % (0.0-10.0) 12/10/17 07:54 Eos % (Auto) 5.7 % (0.0-4.0) H 12/10/17 07:54 Baso % (Auto) 0.4 % (0.0-2.0) 12/10/17 07:54 Neut # (Auto) 2.6 K/uL (1.8-7.0) 12/10/17 07:54 Lymph # (Auto) 1.6 K/uL (1.0-4.3) 12/10/17 07:54 [place] # (Auto) 0.2 K/uL (0.0-0.8) 12/10/17 07:54 Eos # (Auto) 0.3 K/uL (0.0-0.7) 12/10/17 07:54 Baso # (Auto) 0.0 K/uL (0.0-0.2) 12/10/17 07:54 Sodium 143 mmol/L (132-148) 12/10/17 07:54 Potassium 4.2 mmol/L (3.6-5.2) 12/10/17 07:54 Chloride 107 mmol/L (98-107) 12/10/17 07:54 Carbon Dioxide 25 mmol/L (22-30) 12/10/17 07:54 Anion Gap 14 (10-20) 12/10/17 07:54 BUN 12 mg/dL (9-20) 12/10/17 07:54 Creatinine 0.9 mg/dL (0.8-1.5) 12/10/17 07:54 Est GFR ( Amer) > 60 12/10/17 07:54 Est GFR (Non-Af Amer) > 60 12/10/17 07:54 POC Glucose (mg/dL) 99 mg/dL (65-110) 12/10/17 06:02 Random Glucose 107 mg/dL (75-110) 12/10/17 07:54 Calcium 11.4 mg/dl (8.6-10.4) H 12/10/17 07:54 Total Bilirubin 0.7 mg/dL (0.2-1.3) 12/07/17 14:01 AST 60 U/L (17-59) H 12/07/17 14:01 ALT 164 U/L (21-72) H 12/07/17 14:01 Alkaline Phosphatase 239 U/L (38-126) H 12/07/17 14:01 Total Protein 8.2 g/dL (6.3-8.3) 12/07/17 14:01 Albumin 4.6 g/dL (3.5-5.0) 12/07/17 14:01 Globulin 3.7 gm/dL (2.2-3.9) 12/07/17 14:01 Albumin/Globulin Ratio 1.2 (1.0-2.1) 12/07/17 14:01 Lipase 36 U/L (23-300) 12/07/17 14:01 Urine Color Straw (YELLOW) 12/07/17 14:01 Urine Clarity Clear (Clear) 12/07/17 14:01 Urine pH 7.0 (5.0-8.0) 12/07/17 14:01 Ur Specific [place] 1.013 (1.003-1.030) 12/07/17 14:01 Urine Protein Negative mg/dL (NEGATIVE) 12/07/17 14:01 Urine Glucose (UA) Normal mg/dL (Normal) 12/07/17 14:01 Urine Ketones Negative mg/dL (NEGATIVE) 12/07/17 14:01 Urine Blood 3+ (NEGATIVE) H 12/07/17 14:01 Urine Nitrate Negative (NEGATIVE) 12/07/17 14:01 Urine Bilirubin Negative (NEGATIVE) 12/07/17 14:01 Urine Urobilinogen Normal mg/dL (0.2-1.0) 12/07/17 14:01 Ur Leukocyte Esterase Neg Hi/uL (Negative) 12/07/17 14:01 Urine WBC (Auto) < 1 /hpf (0-5) 12/07/17 14:01 Urine RBC (Auto) 367 /hpf (0-3) H 12/07/17 14:01 - Hospital Course Hospital Course: PT SEEN AND EVALAUTED BY ME AND DR. AQUINO AND RECOMMENDED FOR PT TO BE D/C FROM HOSPITAL TODAY AND GO TO [facility] [place] FOR PROCEDURE WITH DR. AQUINO THIS AFTERNOON AT 1:00 PM. PT NPO. PT ADVISED TO CONTINUE HOME MEDS USUAL. FURTHER RECOMMENDATIONS PER DR. AQUINO POST-PROCEDURE. NO FURTHER ORDERS. -FOLLOW UP WITH DR. AQUINO AT [facility] IN [place] TODAY AT 1:00 PM. -CONTINUE HOME MEDICATIONS USUAL. -FOR ANY FURTHER QUESTIONS, CONTACT DR. DOUGLASS OR DR. AQUINO. Discharge Exam - Head Exam Head Exam: ATRAUMATIC, NORMAL INSPECTION, NORMOCEPHALIC - Eye Exam Eye Exam: EOMI, Normal appearance, PERRL Pupil Exam: NORMAL ACCOMODATION, PERRL - ENT Exam ENT Exam: Mucous Membranes Moist - Respiratory Exam Respiratory Exam: Clear to PA & Lateral, NORMAL BREATHING PATTERN - Cardiovascular Exam Cardiovascular Exam: REGULAR RHYTHM, +S1, +S2 - GI/Abdominal Exam GI & Abdominal Exam: Normal Bowel Sounds Discharge Plan - Follow Up Plan Condition: FAIR Disposition: HOME/ ROUTINE Instructions: Renal Colic (DC), Renal Colic (GEN) Additional Instructions: -FOLLOW UP WITH DR. AQUINO AT [facility] IN [place] TODAY AT 1:00 PM. -CONTINUE HOME MEDICATIONS USUAL. -FOR ANY FURTHER QUESTIONS, CONTACT DR. DOUGLASS OR DR. AQUINO. Referrals: Kanu Douglass MD [Staff Provider] - Galdino Aquino MD [Staff Provider] -
== END 2017-12-10 10:59 | disposition home or self-care (01) | DRG 296 ==
LOC: C.ER 12:22 → C.9E 15:17 → C.6T 16:28
PROVIDERS: ADMIT Internal Medicine; ATTEND Internal Medicine
DX: E86.0 Dehydration (principal); N13.2 Hydronephrosis with renal and ureteral calculous obstruction; E11.9 Type 2 diabetes mellitus without complications; J45.909 Unspecified asthma, uncomplicated; Z90.49 Acquired absence of other specified parts of digestive tract